=== PATIENT | male | born 1980 | race Caucasian/White ===

== ENCOUNTER → 2017-01-20 | Outpatient (CLI) | payer OTHER ==
[~2017-01-20] MED LIST: HYDR-5688 PO
== END | disposition home or self-care (01) ==
LOC: C.PATH 13:55
PROVIDERS: ATTEND Dermatology
DX: D22.5 Melanocytic nevi of trunk (principal)

== ENCOUNTER → 2017-04-06 | Outpatient (CLI) | payer OTHER | END | disposition home or self-care (01) | LOC: C.LABSPEC 16:26 | PROVIDERS: ATTEND Dermatology | DX: B35.0 Tinea barbae and tinea capitis (principal) ==